=== PATIENT | female | born 2005 | race African-American/Black ===

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

== ENCOUNTER 2024-12-27 11:09 | Emergency (ER) | payer BC, OTHER, SELFPAY ==
--- NOTE | ~2024-12-27 | XR_ITS ---
EXAMINATION: XR ankle LT min 3V DATE: 12/27/2024 11:43 INDICATION: Left ankle injury and pain. TECHNIQUE: 4 views of left ankle were obtained. COMPARISON: None. FINDINGS: Alignment is normal. No fracture. Joint spaces are normal. There is lateral ankle soft tiss ue swelling. IMPRESSION: 1. No fracture. Reviewed, dictated and finalized at location A. [facility] [employer]ELOP[employer] IMPRESSION: 1. No fracture.
[2024-12-27 11:27] VITALS: BP 113/63; PULSE 87; RESP 16; TEMP 36.4; O2SAT 98
--- NOTE | 2024-12-27 11:39 | ED_ITS ---
HPI - Extremity Injury (Lower) General Chief Complaint: Extremity Injury, Lower Stated Complaint: INJURED L ANKLE Source: patient Mode of arrival: ambulatory Limitations: no limitations History of Present Illness HPI Narrative: 19-year-old female presented for left ankle pain and swelling following injury last night. She states during dance night she fell and rolled the ankle. Has been a to tolerate bearing weight. Took 400 mg of ibuprofen last. Denies numbness, tingling, weakness Or deformity. Related Data Allergies Allergy/AdvReac Type Severity Reaction Status Date / Time No Known Allergies Allergy Verified 12/27/24 11:23 Review of Systems Review of Systems: CONSTITUTIONAL: Denies body aches, fever, chills EYES: Denies visual changes ENT: Denies rhinorrhea, congestion CARDIOVASCULAR: Denies chest pain, palpitations, or edema. RESPIRATORY: Denies cough or dyspnea. GASTROINTESTINAL: Denies abdominal pain, nausea, vomiting, or diarrhea. SKIN: Denies rash, itching, or wounds. MUSCULOSKELETAL: Reports left ankle pain and swelling NEUROLOGIC: Denies headache, numbness, tingling, or weakness. PSYCH: Denies depression or anxiety. All systems reviewed & are unremarkable except as noted in HPI and below PMFSH Past Medical History Medical History (Updated 12/27/24 @ 12:08 by Kala Morales APRN) Whooping cough Surgical History Surgical History (Updated 01/20/22 @ 17:07 by Madeleine Weems NP) No history of previous surgery Social History Social History (Updated 01/20/22 @ 17:07 by Madeleine Weems NP) Smoking status: Never smoker Alcohol intake: never Substance use: never Occupation/Education: student Gender identity (if verbalized by the patient): Female Comments At time of signature, I have reviewed and agree with nursing past medical, surgical, social and family history unless otherwise noted. Please see nursing chart for further information. There is no relevant family history pertinent to the presenting complaint Exam Narrative: GENERAL: Well-appearing CHEST: Speaks in full sentences. No respiratory distress. HEART: Regular rate and rhythm. Normal and equal peripheral pulses. EXTREMITIES: left foot has normal strength and sensation, limited range of motion with flexion/extension/rotation of ankle, endorses pain with movement. moderate lateral malleolus swelling and tenderness. No ecchymosis, No open wounds, or obvious deformity; alignment normal, pulse palpable and equal bilaterally, skin warm, dry, pink. Capillary refill less than 3 seconds. SKIN: Warm, dry, no rash. NEURO: Alert and oriented x3. PSYCH: Normal mood and affect Course Course Emergency Course: Patient is aware of diagnosis, understands and agrees to treatment plan. Anticipatory guidance given. Patient agrees to follow-up as directed and is aware of reasons to seek care at the emergency department. Portions of this record may have been created with voice recognition software Level of Care: Express Care Visit Vital Signs Vital signs: Vital Signs Temperature 97.5 F L 12/27/24 11:27 Pulse Rate 87 12/27/24 11:27 Respiratory Rate 16 12/27/24 11:27 Blood Pressure 113/63 12/27/24 11:27 Pulse Oximetry 98 12/27/24 11:27 Temperature 97.5 F L 12/27/24 11:27 Pulse Rate 87 12/27/24 11:27 Respiratory Rate 16 12/27/24 11:27 Blood Pressure 113/63 12/27/24 11:27 Pulse Oximetry 98 12/27/24 11:27 Reviewed MDM - Extremity Injury (Lower) MDM Narrative Medical decision making narrative: Discussed physical exam findings. reviewed x-ray. Sekou wrap applied to left ankle. Advised supportive measures and signs/symptoms to go to the ER. Pt is appropriate for outpt treatment and f/u. Differential Diagnosis Differential diagnosis: Likely ankle sprain and strain and ankle fracture Imaging Data Radiologist's impression: Patient: Celi Jones : 2005 MR#: [id number] Age: 19 Acct:[id number] Loc: [id number] ADM Date: 12/27/24Attending Dr: Ordering Physician: Kala Morales APRN Date of Service: 12/27/24 Procedure(s): XR ankle LT min 3V Accession Number(s): [id number] cc: Kala Morales APRN; MarquiseElda~ EXAMINATION: XR ankle LT min 3V DATE: 12/27/2024 11:43 INDICATION: Left ankle injury and pain. TECHNIQUE: 4 views of left ankle were obtained. COMPARISON: None. FINDINGS: Alignment is normal. No fracture. Joint spaces are normal. There is lateral ankle soft tissue swelling. IMPRESSION: 1. No fracture. Discharge Plan Discharge Clinical Impression: Ankle sprain and strain Patient Disposition: Home, Self-Care Condition: Stable Instructions: Antibiotic Form, Ankle Sprain (ED) Additional Instructions: Rest and elevate the left leg; bear weight as tolerated. Avoid running, jumping, or excessive walking until symptoms are fully resolved. Apply ice 15-20 minute intervals several times a day Keep it wrapped with SEKOU or use a soft ankle splint Motrin 800mg every 8 hours, alternate with Tylenol 1000mg every 8 hours as needed Follow up with your primary care provider as needed to the ER worsening symptoms or concerns Patient Language: Ukrainian Prescriptions: New ibuprofen 800 mg tablet 800 mg PO TID PRN (Reason: pain) Qty: 15 0RF Follow-up/Referrals: Marquise,Elda [Other] Time of Disposition: 12:08
== END 2024-12-27 12:14 | disposition home or self-care (01) ==
PROVIDERS: Emergency Provider Nurse Practitioner Family
DX: S93.402A Sprain of unspecified ligament of left ankle, initial encounter (principal); S96.912A Strain of unspecified muscle and tendon at ankle and foot level, left foot, initial encounter; W19.XXXA Unspecified fall, initial encounter
CPT/HCPCS: 73610; 99213; G0463